=== PATIENT | female | born 1990 | race Caucasian/White ===

== ENCOUNTER 2018-09-07 13:18 | Emergency (ER) | payer OTHER ==
[2018-09-07 13:46] VITALS: RESP 18; TEMP 98.4; O2SAT 99; BMI 29.1
--- NOTE | 2018-09-07 14:24 | ED PDOC ---
Arrival/HPI - General Chief Complaint: Lower Extremity Problem/Injury Time Seen by Provider: 09/07/18 13:39 Historian: Patient - History of Present Illness Narrative History of Present Illness (Text): 09/07/18 14:21 28yo female with no pmhx who present with complaint of left foot pain x 3days. Notes that pain started suddenly with some swelling on her dorsal left foot. Notes pain with ambulation and also to her plantar surface. did not take any medication for her pain. Denies trauma, paresthesia, focal weakness, any other complaint. Past Medical History - Provider Review Nursing Documentation Reviewed: Yes - Past History Past History: No Previous - Infectious Disease Hx of Infectious Diseases: None - Psychiatric Hx Substance Use: No - Past Surgical History Past Surgical History: No Previous Family/Social History - Physician Review Nursing Documentation Reviewed: Yes Family/Social History: Unknown Family HX Smoking Status: Former Smoker Hx Alcohol Use: Yes Frequency of alcohol use: Socially Hx Substance Use: No Allergies/Home Meds Allergies/Adverse Reactions: Allergies No Known Allergies Allergy (Verified 01/14/13 05:27) per patient Review of Systems - Physician Review All systems were reviewed & negative as marked: Yes - Review of Systems Constitutional: Normal Eyes: Normal ENT: Normal Respiratory: Normal Cardiovascular: Normal Gastrointestinal: Normal Genitourinary Female: Normal Musculoskeletal: Arthralgias (Left foot pain) Skin: Normal Neurological: Normal Endocrine: Normal Hemo/Lymphatic: Normal Psychiatric: Normal Physical Exam Vital Signs Reviewed: Yes Vital Signs Temp Pulse Resp BP Pulse Ox 09/07/18 13:45 98.4 F 65 18 112/71 99 Temperature: Afebrile Blood Pressure: Normal Pulse: Regular Respiratory Rate: Normal Appearance: Positive for: Well-Appearing, Non-Toxic, Comfortable Pain Distress: None Mental Status: Positive for: Alert and Oriented X 3 - Systems Exam Head: Present: Atraumatic, Normocephalic Pupils: Present: PERRL Extroacular Muscles: Present: EOMI Conjunctiva: Present: Normal Mouth: Present: Moist Mucous Membranes Neck: Present: Normal Range of Motion Respiratory/Chest: Present: Clear to Auscultation, Good Air Exchange. No: Respiratory Distress, Accessory Muscle Use Cardiovascular: Present: Regular Rate and Rhythm, Normal S1, S2. No: Murmurs Abdomen: No: Tenderness, Distention, Peritoneal Signs Back: Present: Normal Inspection Upper Extremity: Present: Normal Inspection. No: Cyanosis, Edema Lower Extremity: Present: NORMAL PULSES, Normal ROM, Tenderness (Proximal left foot), Swelling (Very mild swelling noted on dorsal left proximal foot), Neurovascularly Intact. No: Edema, CALF TENDERNESS, Erythema Neurological: Present: GCS=15, CN II-XII Intact, Speech Normal Skin: Present: Warm, Dry, Normal Color. No: Rashes Psychiatric: Present: Alert, Oriented x 3, Normal Insight, Normal Concentration Medical Decision Making ED Course and Treatment: 09/07/18 15:07 Pt in ED for stated history. She ambulated to the ED Left foot xray - No acute finding Pt have focal tenderness over her proximal left dorsal foot. Symptoms likely tendonitis. She was treated with NSAID in ED. Result was DW the pt. Surgical shoe was given and she was referred to a scrap metal burner. - RAD Interpretation Radiology Orders: 09/07/18 13:48 FOOT LEFT 3 VIEWS ROUTINE [RAD] Stat - Medication Orders Current Medication Orders: Discontinued Medications Ibuprofen (Motrin Tab) 600 mg PO STAT STA Stop: 09/07/18 13:50 Disposition/Present on Arrival - Present on Arrival Any Indicators Present on Arrival: No History of DVT/PE: No History of Uncontrolled Diabetes: No Urinary Catheter: No History of Decub. Ulcer: No History Surgical Site Infection Following: None - Disposition Have Diagnosis and Disposition been Completed?: Yes Diagnosis: Foot pain, Tendonitis Disposition: HOME/ ROUTINE Disposition Time: 15:10 Patient Plan: Discharge Condition: STABLE Discharge Instructions (ExitCare): Tendonitis (DC), Muscle and Bone Pain (DC) Additional Instructions: Follow up with a [employer] Return to ED for any new symptoms Prescriptions: Naproxen [Naprosyn] 500 mg PO BID #20 tablet Referrals: Uri Hawkins MD [Primary Care Provider] - Follow up with primary Maura Kwan DPM [Staff Provider] - Follow up with primary Forms: [employer] (Mongolian)
[2018-09-07 15:17] VITALS: BP 114/75; PULSE 68
--- NOTE | 2018-09-07 15:25 | RAD ---
Date of service: 09/07/2018 PROCEDURE: Left Foot Radiographs. HISTORY: foot pain COMPARISON: None. FINDINGS: BONES: Normal. No fracture. JOINTS: Normal. SOFT TISSUES: Normal. OTHER FINDINGS: None. IMPRESSION: Normal left foot radiographs.
== END 2018-09-07 16:27 | disposition home or self-care (01) ==
LOC: ED 13:18
DX: M79.672 Pain in left foot (principal); M77.9 Enthesopathy, unspecified